=== PATIENT | male | born 1960 | race Caucasian/White ===

== ENCOUNTER 2017-06-16 20:50 | Emergency (ER) | payer MEDICAID ==
[~2017-06-16] VITALS: Ht 180.3 cm; Wt 90.7 kg
[2017-06-16 21:38] VITALS: Ht 180.3 cm; Wt 90.7 kg
[2017-06-16 23:31] VITALS: BP 145/76
== END 2017-06-16 23:31 | disposition home or self-care (01) ==
LOC: ED 20:50
DX: R10.13 Epigastric pain (principal)
CPT/HCPCS: J1885

== ENCOUNTER 2017-06-17 15:17 | Inpatient (IN) | payer MEDICAID ==
[~2017-06-17] VITALS: Ht 177.8 cm; Wt 90.5 kg
[2017-06-17 17:01] LABS: BASOPHIL % 0.6 % (0-2); PLATELET COUNT 306 x10^3mcL (130-400); RED CELL DISTRIBUTION WIDTH 13.9 % (11.5-14.5)
[2017-06-17 17:35] LABS: CARBON DIOXIDE 26.4 mmol/L (21-32); CHLORIDE SERUM 104 mmol/L (98-107); CREATININE SERUM 0.9 mg/dL (0.7-1.3); GFR1 > 60 mL/min; GLUCOSE SERUM 99 mg/dL (74-106); POTASSIUM SERUM 3.8 mmol/L (3.5-5.1); SODIUM SERUM 140 mmol/L (136-145)
[2017-06-17 17:53] LABS: UA SPECIFIC GRAVITY 1.025 (1.005-1.035); microscopic required? YES; urine erythrocyte NEGATIVE (NEGATIVE)
[2017-06-17 17:54] LABS: ALBUMIN 3.4 g/dL (3.4-5.0); ALKALINE PHOSPHATASE 175 U/L (46-116); ALT/SGPT 1247 U/L (16-63); AST/SGOT 1106 U/L (15-37); BILIRUBIN TOTAL 3.4 mg/dL (0.20-1.00); TOTAL PROTEIN, SERUM 6.6 g/dL (6.4-8.2)
[2017-06-17 19:54] LABS: T3 TOTAL 1.09 ng/mL
[2017-06-17 20:11] VITALS: BP 116/76
[2017-06-17 20:15] LABS: AMPHETAMINE QUAL UR NONE DETECTED (NEG <=1000)
[2017-06-17 20:20] LABS: MAGNESIUM 1.9 mg/dL (1.8-2.4); PHOSPHOROUS 2.9 mg/dL (2.5-4.9)
[2017-06-17 20:21] LABS: CHOLESTEROL/HDL RATIO 2.4
[2017-06-17 20:25] LABS: FREE T4 1.59 ng/dL (0.76-1.46); FREE THYROXINE INDEX 3.5 ug/dL (1.4-4.5); T4(THYROXINE) 10.4 ug/dL (4.7-13.3)
[2017-06-17 21:28] VITALS: BP 116/76
[2017-06-18 05:59] VITALS: BP 100/71
[2017-06-18 07:44] LABS: PLATELET COUNT 283 x10^3mcL (130-400); RED CELL DISTRIBUTION WIDTH 13.7 % (11.5-14.5)
[2017-06-18 08:16] LABS: CALCIUM 8.2 mg/dL (8.5-10.1); CARBON DIOXIDE 24.1 mmol/L (21-32); CHLORIDE SERUM 107 mmol/L (98-107); CREATININE SERUM 0.8 mg/dL (0.7-1.3); GFR1 > 60 mL/min; GLUCOSE SERUM 99 mg/dL (74-106); MAGNESIUM 1.9 mg/dL (1.8-2.4); PHOSPHOROUS 2.6 mg/dL (2.5-4.9); POTASSIUM SERUM 3.8 mmol/L (3.5-5.1); SODIUM SERUM 140 mmol/L (136-145)
[2017-06-18 10:09] VITALS: BP 111/69
[2017-06-18 18:03] VITALS: BP 104/62
[2017-06-18 19:25] VITALS: BP 116/77
[2017-06-19 05:40] VITALS: BP 105/72
[2017-06-19 06:56] LABS: BASOPHIL % 0.8 % (0-2); PLATELET COUNT 321 x10^3mcL (130-400); RED CELL DISTRIBUTION WIDTH 13.9 % (11.5-14.5)
[2017-06-19 07:12] LABS: CALCIUM 8.4 mg/dL (8.5-10.1); CARBON DIOXIDE 23.8 mmol/L (21-32); CHLORIDE SERUM 105 mmol/L (98-107); CREATININE SERUM 0.9 mg/dL (0.7-1.3); GFR1 > 60 mL/min; GLUCOSE SERUM 100 mg/dL (74-106); MAGNESIUM 1.9 mg/dL (1.8-2.4); PHOSPHOROUS 2.7 mg/dL (2.5-4.9); POTASSIUM SERUM 4.1 mmol/L (3.5-5.1); SODIUM SERUM 139 mmol/L (136-145)
[2017-06-19 09:44] VITALS: BP 131/76
[2017-06-19 10:15] VITALS: BP 114/71
[2017-06-19 17:29] VITALS: BP 120/73
[2017-06-19 21:03] VITALS: BP 127/82
[2017-06-20 06:28] VITALS: BP 128/81
[2017-06-20 08:40] LABS: PLATELET COUNT 322 x10^3mcL (130-400); RED CELL DISTRIBUTION WIDTH 13.6 % (11.5-14.5)
[2017-06-20 08:45] LABS: BASOPHIL % 0 % (0-2)
[2017-06-20 09:15] LABS: CALCIUM 8.6 mg/dL (8.5-10.1); CARBON DIOXIDE 21.6 mmol/L (21-32); CHLORIDE SERUM 103 mmol/L (98-107); CREATININE SERUM 0.8 mg/dL (0.7-1.3); GFR1 > 60 mL/min; GLUCOSE SERUM 92 mg/dL (74-106); POTASSIUM SERUM 3.7 mmol/L (3.5-5.1); SODIUM SERUM 136 mmol/L (136-145)
[2017-06-20 09:17] VITALS: BP 106/65
[2017-06-20 17:04] VITALS: BP 126/77
[2017-06-20 21:39] VITALS: BP 141/83
[2017-06-21 05:36] VITALS: BP 127/82
[2017-06-21 07:21] LABS: PLATELET COUNT 302 x10^3mcL (130-400); RED CELL DISTRIBUTION WIDTH 13.5 % (11.5-14.5)
[2017-06-21 07:22] LABS: BASOPHIL % 0 % (0-2)
[2017-06-21 07:32] LABS: CARBON DIOXIDE 20.9 mmol/L (21-32); CHLORIDE SERUM 102 mmol/L (98-107); CREATININE SERUM 0.8 mg/dL (0.7-1.3); GFR1 > 60 mL/min; GLUCOSE SERUM 95 mg/dL (74-106); MAGNESIUM 1.8 mg/dL (1.8-2.4); PHOSPHOROUS 2.2 mg/dL (2.5-4.9); POTASSIUM SERUM 3.7 mmol/L (3.5-5.1); SODIUM SERUM 136 mmol/L (136-145)
[2017-06-21 08:54] LABS: BILIRUBIN DIRECT 0.36 mg/dL (0.0-0.2); BILIRUBIN TOTAL 1.16 mg/dL (0.20-1.00); TOTAL PROTEIN, SERUM 6.3 g/dL (6.4-8.2)
[2017-06-21 09:00] LABS: ALBUMIN 2.7 g/dL (3.4-5.0)
[2017-06-21 17:51] VITALS: BP 128/82
[2017-06-21 21:54] VITALS: BP 105/78
[2017-06-22 05:53] VITALS: BP 126/85
[2017-06-22 08:19] LABS: CALCIUM 7.8 mg/dL (8.5-10.1); CARBON DIOXIDE 22.8 mmol/L (21-32); CHLORIDE SERUM 101 mmol/L (98-107); CREATININE SERUM 0.7 mg/dL (0.7-1.3); GFR1 > 60 mL/min; GLUCOSE SERUM 101 mg/dL (74-106); MAGNESIUM 1.6 mg/dL (1.8-2.4); PHOSPHOROUS 1.7 mg/dL (2.5-4.9); POTASSIUM SERUM 3.4 mmol/L (3.5-5.1); SODIUM SERUM 135 mmol/L (136-145)
[2017-06-22 08:36] LABS: BASOPHIL % 0.1 % (0-2); PLATELET COUNT 279 x10^3mcL (130-400); RED CELL DISTRIBUTION WIDTH 13.8 % (11.5-14.5)
[2017-06-22 09:55] VITALS: BP 118/74
[2017-06-22 18:01] VITALS: BP 129/82
[2017-06-22 21:44] VITALS: BP 144/95
[2017-06-23 06:00] VITALS: BP 120/86
[2017-06-23 08:24] LABS: CALCIUM 7.6 mg/dL (8.5-10.1); CARBON DIOXIDE 22.1 mmol/L (21-32); CHLORIDE SERUM 100 mmol/L (98-107); CREATININE SERUM 0.7 mg/dL (0.7-1.3); GFR1 > 60 mL/min; GLUCOSE SERUM 109 mg/dL (74-106); PHOSPHOROUS 2.1 mg/dL (2.5-4.9); POTASSIUM SERUM 3.9 mmol/L (3.5-5.1)
[2017-06-23 08:38] LABS: PLATELET COUNT 312 x10^3mcL (130-400); RED CELL DISTRIBUTION WIDTH 13.5 % (11.5-14.5)
[2017-06-23 08:40] LABS: BASOPHIL % 0 % (0-2)
[2017-06-23 08:58] LABS: SODIUM SERUM 135 mmol/L (136-145)
[2017-06-23 08:59] VITALS: BP 139/89
[2017-06-23] MEDS ORDERED: NOR10T PO (10:14)
[2017-06-23 13:10] VITALS: BP 139/89
== END 2017-06-23 14:30 | disposition home or self-care (01) | DRG 263 ==
LOC: ED 15:17 → MU 18:53 → DU 18:53 → MU 06-18 09:33
PROVIDERS: Emergency Medicine; Family Medicine; Surgery
PROC: 0F798ZZ Dilation of Common Bile Duct, Via Natural or Artificial Opening Endoscopic (ICD-10-PCS; principal; 2017-06-17)
PROC: BF131ZZ Fluoroscopy of Gallbladder and Bile Ducts using Low Osmolar Contrast (ICD-10-PCS; 2017-06-17)
PROC: 0FT44ZZ Resection of Gallbladder, Percutaneous Endoscopic Approach (ICD-10-PCS; 2017-06-21)
DX: K80.10 Calculus of gallbladder with chronic cholecystitis without obstruction (principal); N17.0 Acute kidney failure with tubular necrosis; E43 Unspecified severe protein-calorie malnutrition; K75.9 Inflammatory liver disease, unspecified; K85.90 Acute pancreatitis without necrosis or infection, unspecified; E83.42 Hypomagnesemia; E87.6 Hypokalemia; E83.39 Other disorders of phosphorus metabolism; Z68.28 Body mass index [BMI] 28.0-28.9, adult
CPT/HCPCS: 43262; 83880; 84439; 94150; 97110-GP; C1769; J0690; J0744; J1170; J1610; J1644; J1885; J2060; J2175; J2250; J2405; J2550; J2704; J3010; J3475; J3490; J7030; J7120; Q0092; Q9967

== ENCOUNTER 2017-07-07 15:04 | Emergency (ER) | payer MEDICAID ==
[~2017-07-07] VITALS: Ht 177.8 cm; Wt 83.9 kg
[~2017-07-07 15:04] MED LIST: NOR10T PO
[2017-07-07 15:11] VITALS: Ht 177.8 cm; Wt 83.9 kg
[2017-07-07 15:40] LABS: BASOPHIL % 1.3 % (0-2); RED CELL DISTRIBUTION WIDTH 13.2 % (11.5-14.5)
[2017-07-07 15:48] LABS: PLATELET COUNT 621 x10^3mcL (130-400)
[2017-07-07 15:52] LABS: CALCIUM 8.6 mg/dL (8.5-10.1); CARBON DIOXIDE 28.7 mmol/L (21-32); CHLORIDE SERUM 106 mmol/L (98-107); CREATININE SERUM 0.9 mg/dL (0.7-1.3); GFR1 > 60 mL/min; GLUCOSE SERUM 110 mg/dL (74-106); POTASSIUM SERUM 4.2 mmol/L (3.5-5.1); SODIUM SERUM 139 mmol/L (136-145)
[2017-07-07 15:57] LABS: ALKALINE PHOSPHATASE 105 U/L (46-116); ALT/SGPT 66 U/L (16-63); AST/SGOT 28 U/L (15-37); BILIRUBIN TOTAL 0.92 mg/dL (0.20-1.00); LIPASE 255 IU/L (73-393)
[2017-07-07 15:58] LABS: ALBUMIN 3.3 g/dL (3.4-5.0)
[2017-07-07 17:20] LABS: microscopic required? NO
[2017-07-07 17:35] LABS: UA SPECIFIC GRAVITY 1.015 (1.005-1.035); urine erythrocyte NEGATIVE (NEGATIVE)
[2017-07-07 19:41] VITALS: BP 109/75
== END 2017-07-07 19:41 | disposition home or self-care (01) ==
LOC: ED 15:04
PROVIDERS: Emergency Medicine
DX: R10.31 Right lower quadrant pain (principal); Z90.49 Acquired absence of other specified parts of digestive tract
CPT/HCPCS: J1885; J3010; J7030; Q9967

== ENCOUNTER 2018-08-23 00:38 | Emergency (ER) | payer OTHER ==
[~2018-08-23] VITALS: Ht 180.3 cm; Wt 83.0 kg
[2018-08-23 00:45] VITALS: Ht 180.3 cm; Wt 83.0 kg
[2018-08-23 02:07] VITALS: BP 104/77
== END 2018-08-23 02:07 | disposition home or self-care (01) ==
LOC: ED 00:38
DX: S61.233A Puncture wound without foreign body of left middle finger without damage to nail, initial encounter (principal); Z90.49 Acquired absence of other specified parts of digestive tract; W26.8XXA Contact with other sharp object(s), not elsewhere classified, initial encounter; Y93.89 Activity, other specified; Y92.89 Other specified places as the place of occurrence of the external cause; Y99.8 Other external cause status
CPT/HCPCS: 90715

== ENCOUNTER 2018-12-24 09:52 | Emergency (ER) | payer OTHER ==
[~2018-12-24] VITALS: Ht 170.2 cm; Wt 79.8 kg
[2018-12-24 10:12] VITALS: Ht 170.2 cm; Wt 79.8 kg
[2018-12-24 12:45] VITALS: BP 114/64
== END 2018-12-24 12:45 | disposition home or self-care (01) ==
LOC: ED 09:52
DX: S83.92XA Sprain of unspecified site of left knee, initial encounter (principal); W22.8XXA Striking against or struck by other objects, initial encounter; Y93.89 Activity, other specified; Y92.89 Other specified places as the place of occurrence of the external cause; Y99.0 Civilian activity done for income or pay

== ENCOUNTER 2019-10-11 18:52 | Emergency (ER) | payer SELFPAY ==
[~2019-10-11] VITALS: Ht 180.3 cm; Wt 86.6 kg
[2019-10-11 19:00] VITALS: Ht 180.3 cm; Wt 86.6 kg
[2019-10-11 20:00] LABS: BASOPHIL % 0.8 % (0-2); PLATELET COUNT 307 x10^3mcL (130-400); RED CELL DISTRIBUTION WIDTH 13.1 % (11.5-14.5)
[2019-10-11 20:14] LABS: CALCIUM 7.9 mg/dL (8.5-10.1); CHLORIDE SERUM 105 mmol/L (98-107); CREATININE SERUM 1.2 mg/dL (0.7-1.3); GFR1 > 60 mL/min; GLUCOSE SERUM 126 mg/dL (74-106); POTASSIUM SERUM 3.4 mmol/L (3.5-5.1); SODIUM SERUM 141 mmol/L (136-145)
[2019-10-11 20:18] LABS: ALBUMIN 3.3 g/dL (3.4-5.0); ALKALINE PHOSPHATASE 119 U/L (46-116); ALT/SGPT 27 U/L (16-63); AMYLASE 84 U/L (25-115); AST/SGOT 17 U/L (15-37); BILIRUBIN TOTAL 0.6 mg/dL (0.20-1.00); LIPASE 120 IU/L (73-393); TOTAL PROTEIN, SERUM 6.5 g/dL (6.4-8.2)
[2019-10-11 21:19] VITALS: BP 106/63
== END 2019-10-11 21:19 | disposition home or self-care (01) ==
LOC: ED 18:52
PROVIDERS: Emergency Medicine
DX: R10.11 Right upper quadrant pain (principal); Z90.49 Acquired absence of other specified parts of digestive tract
CPT/HCPCS: J1885